=== PATIENT | male | born 1980 | race Caucasian/White ===

== ENCOUNTER 2018-03-09 03:57 | Inpatient (IN) | payer OTHER ==
[2018-03-09] VITALS (15 sets, daily range): BP systolic 125–149; BP diastolic 77–94
[~2018-03-09] VITALS: Ht 175.3 cm; Wt 86.6 kg
[2018-03-09] MEDS ORDERED: QUETIAPINE FUM100 MG PO (04:14)
[2018-03-09] MEDS ORDERED: NEURONTIN 300300 M1 PO (04:14)
[2018-03-09] MEDS ORDERED: CELEXA40 MG PO (04:15)
[2018-03-09] MEDS ORDERED: BUSPIRONE HCL10 MG PO (04:20)
[2018-03-09 04:44] LABS: HEMATOCRIT 40.6 % (42.0-52.0); HEMOGLOBIN 13.9 gm/dL (14.0-18.0); MCH 33.1 pg (26.0-34.0); MCHC 34.1 g/dL (28.0-37.0); MCV 97.1 fL (80.0-100.0); MPV 7.7 fl. (7.2-11.1); RBC 4.18 mil/uL (4.50-6.00); RDW-CV 13.6 % (10.5-14.5); WBC 8.9 thou/uL (4.0-11.0)
[2018-03-09 04:56] LABS: CALCIUM 8.6 mg/dL (8.5-10.1); CREATININE 0.7 mg/dL (0.6-1.3)
[2018-03-09 05:00] LABS: ALBUMIN 3.5 g/dL (3.4-5.0); TOTAL BILIRUBIN 0.1 mg/dL (<0.1-1.0); TOTAL PROTEIN 6.6 g/dL (6.4-8.2)
[2018-03-09 05:01] LABS: SALICYLATE < 2.8 mg/dL (2.8-20.0)
[2018-03-09 05:03] LABS: ACETAMINOPHEN < 2 ug/mL (10-30)
[2018-03-09 05:04] LABS: ALCOHOL < 10 mg/dL (<10)
[2018-03-09 07:18] LABS: URINE BILIRUBIN NEGATIVE (Negative); URINE BLOOD NEGATIVE (Negative); URINE CLARITY CLEAR; URINE COLOR YELLOW; URINE GLUCOSE-RANDOM NEGATIVE (Negative); URINE KETONES NEGATIVE (Negative); URINE LEUKOCYTES NEGATIVE (Negative); URINE NITRITE NEGATIVE (Negative); URINE PROTEIN NEGATIVE (Negative); URINE UROBILINOGEN 0.2 E.U./dl (0.2-1.0)
[2018-03-09 07:28] LABS: AMP/METHAMP Negative (Negative); BARBITURATES Negative (Negative); BENZODIAZEPINES Negative (Negative); COCAINE Negative (Negative); METHADONE Negative (Negative); OPIATES Negative (Negative); PCP Negative (Negative); THC Negative (Negative)
--- NOTE | 2018-03-09 14:33 | EKG ---
[place] [address] ELECTROCARDIOGRAM REPORT Name: BLESSING GUTIERREZ Room: [address] ADM IN M.R.#: [id number] Admission: 03/09/18 Attend Phys: Tram Akers MD Discharge: Date of : 82 Report #: [id number] THIS REPORT FOR: //name// [facility] ED Test Date: 2018-03-09 Test Time: 05:13:53 Pat Name: BLESSING GUTIERREZ Department: Room: [facility] Gender: M Crane Ladle Person: MARGOT : 1980 Requested By: Blaire Robles Order Number: [id number] MD: Wale Mcguire Measurements Intervals Silva Rate: 106 P: 55 CO: 179 QRS: 27 QRSD: 103 T: 24 QT: 346 QTc: 460 Interpretive Statements Sinus tachycardia No previous ECG available for comparison Electronically Signed On 03-09-2018 14:33:14 [employer] by Wale Mcguire [email or web address] <ELECTRONICALLY SIGNED> By: Wale Mcguire MD, [facility] 03/09/18 1433 0513 05 Wale Mcguire MD, FACC /EPI
[2018-03-10] VITALS (12 sets, daily range): BP systolic 131–155; BP diastolic 50–101
[2018-03-10 07:35] LABS: ABSOLUTE EOSINOPHILS 0.4 thou/uL (0.0-0.7); ABSOLUTE LYMPHOCYTES 3.2 thou/uL (0.8-5.3); ABSOLUTE MONOCYTES 0.5 thou/uL (0.0-1.2); ABSOLUTE NEUTROPHILS 3.8 thou/uL (1.6-8.1); BASOPHILS 0.5 %; EOSINOPHILS 4.8 %; HEMATOCRIT 40.1 % (42.0-52.0); HEMOGLOBIN 13.6 gm/dL (14.0-18.0); LYMPHOCYTES 40.5 %; MCH 33.3 pg (26.0-34.0); MCHC 33.9 g/dL (28.0-37.0); MCV 98.4 fL (80.0-100.0); MONOCYTES 6.1 %; NUCLEATED RBCS 0 /100WBC; PLATELET COUNT* 200 thou/uL (150-400); POLYS 48.1 %; RBC 4.08 mil/uL (4.50-6.00); RDW-CV 13.7 % (10.5-14.5)
[2018-03-10 08:02] LABS: ALBUMIN 3.2 g/dL (3.4-5.0); CALCIUM 8.4 mg/dL (8.5-10.1); CREATININE 0.7 mg/dL (0.6-1.3); POTASSIUM 4.1 mmol/L (3.5-5.1); TOTAL BILIRUBIN 0.2 mg/dL (<0.1-1.0)
[2018-03-11] VITALS: BP 133/80
[2018-03-11 04:00] VITALS: BP 136/82
[2018-03-11 08:15] VITALS: BP 139/89
[2018-03-11 11:33] VITALS: BP 140/81
[2018-03-11 14:52] VITALS: BP 140/81
[2018-03-11 17:39] VITALS: BP 140/81
== END 2018-03-11 16:48 | DRG 918 ==
LOC: M.ERS 03:57 → M.ICU 05:19 → M.2W 05:19 → M.TBA-ER 05:19 → M.ICU 08:11 → M.2W 03-10 09:45
PROVIDERS: Internal Medicine; Personal Emergency Response Attendant; ADMIT Family Medicine
DX: T43.592A Poisoning by other antipsychotics and neuroleptics, intentional self-harm, initial encounter (principal); F31.9 Bipolar disorder, unspecified; F90.9 Attention-deficit hyperactivity disorder, unspecified type; F17.210 Nicotine dependence, cigarettes, uncomplicated; Y92.89 Other specified places as the place of occurrence of the external cause; Z91.5 Personal history of self-harm; Z79.899 Other long term (current) drug therapy; Z23 Encounter for immunization